=== PATIENT | male | born 1980 | race Caucasian/White ===

== ENCOUNTER 2024-10-24 02:50 | Emergency (ER) | payer MEDICAID, SELFPAY ==
[2024-10-24 02:51] VITALS: BP 128/80; PULSE 71; RESP 16; TEMP 36.7; O2SAT 100; BMI 24.6
--- NOTE | 2024-10-24 02:55 | EX.ED.DYSGE1 ---
HPI History of Present Illness Chief Complaint: Chest Pain Informant: patient and EMS Narrative Narrative: Patient is a 44-year-old male with past medical history of hidradenitis suppurativa and smoking. He states that over the past 2 to 3 days he has been having increasing pain from his hidradenitis. He states he has not had a fever or chills. He denies any history of immunosuppression. He states he was walking to another hospital that he has been seen before for his hidradenitis when he began to experience some chest discomfort. He states that he had a pain/pressure in the middle of his chest without radiation or nausea vomiting diaphoresis or shortness of breath. He states he struggles with anxiety and believes he was having a panic attack. He states that he called EMS when the symptoms occurred. However after they were able to pick him up and bring him to the ER he states he has had spontaneous resolution of the chest discomfort. [facility] Medical History Anxiety Home Medications ?Medication ?Instructions ?Recorded ?Last Taken ?Type amoxicillin 875 mg-potassium 1 tab PO BID 10 days #20 tabs 10/24/24 Unknown Rx clavulanate 125 mg tablet doxycycline hyclate 100 mg capsule 100 mg PO BID 10 days #20 caps 10/24/24 Unknown Rx oxycodone-acetaminophen 5 mg-325 1 tab PO Q6H PRN pain 3 days #12 10/24/24 Unknown Rx mg tablet (Percocet) tabs prednisone 20 mg tablet 40 mg (2 x 20 mg) PO DAILY 7 days 10/24/24 Unknown Rx #14 tabs Allergy/AdvReac Type Severity Reaction Status Date / Time sulfamethoxazole (From AdvReac Unknown PT UNABLE Verified 10/24/24 02:55 Bactrim) TO RESPOND-NEEDS F/U trimethoprim (From Bactrim) AdvReac Unknown PT UNABLE Verified 10/24/24 02:55 TO RESPOND-NEEDS F/U Social History Smoking Status: Current every day smoker tobacco type: cigarettes ROS ROS ED Constitutional Constitutional ED: Denies chills or fever(s) ENT ENT ED: Denies sore throat Cardiovascular Cardiovascular: Reports chest pain; Denies palpitations or racing heartbeat Respiratory/Chest Respiratory/Chest: Denies cough or dyspnea Gastrointestinal Gastrointestinal: Denies abdominal pain, diarrhea, nausea or vomiting Musculoskeletal Musculoskeletal: Denies myalgias Integumentary Reports other Details: Positive chronic skin changes secondary to hidradenitis suppurativa Neurologic Neurologic: Denies headache(s) Psychiatric Psychiatric: Reports anxiety; Denies suicidal ideation or suicidal thoughts Hematologic/Lymphatic Hematologic/Lymphatic: Denies easy bleeding or easy bruising EXAM Physical Exam Const Vital Signs: 10/24/24 02:51 10/24/24 02:53 10/24/24 03:50 Temperature 98.1 F Temperature Source Oral Pulse Rate 71 56 L Respiratory Rate 16 18 Respiratory Effort Non-Labored Short of Breath Blood Pressure 128/80 H 123/77 H Blood Pressure Mean 96 92 Pulse Ox 100 100 Oxygen Delivery Method Room Air Room Air Positive well nourished and well developed General Appearance ED: well developed HEENT HEENT Narrative: Normocephalic atraumatic Eyes PERRL and EOMs intact bilaterally General Eye ED: Negative for scleral icterus Neck supple and no JVD Chest Wall palpation of chest normal Chest Narrative: No bony deformity or subcutaneous emphysema noted Resp normal respiratory effort Resp Narrative: Breath sounds are slight diminished throughout with faint expiratory wheeze and rhonchi in the bilateral bases; however no signs of respiratory distress Cardio regular rate and regular rhythm Rate: other Other Details: Heart is regular rate and rhythm without murmurs rubs or gallops GI normal to inspection, nondistended, normoactive bowel sounds, non-tender, non-distended and no masses Auscultation: normoactive bowel sounds Palpation: soft Extremity Extremity Narrative: No asymmetric edema no pitting edema negative Homans' sign bilaterally Neuro oriented x3, CN's II-XII intact bilaterally and no sensory deficits noted Sensorium / Orientation: alert Motor Exam: strength 5/5 throughout Psych Mood & Affect: anxious Skin Skin Narrative: Patient has chronic/keloid scarring as well as erythema in the bilateral axillas as well as across the low back and buttocks consistent with hidradenitis suppurativa. However there are no obvious signs of abscess formation. No lymphangitic streaking. No crepitance palpated. MDM MDM MDM Narrative Medical decision making narrative: Patient arrived to the ER with stable vitals and reported spontaneous resolution of his chest pain. He has minimal risk factors for cardiovascular disease and I do agree that his discomfort was most likely related to anxiety. However in order to rule out acute coronary syndrome or cardiac dysrhythmia an EKG was obtained as well as troponin and patient was kept on the registered nurse cardiac telemetry. EKG was sinus rhythm without ischemic findings and troponin is normal going against ACS. Patient was kept on the registered nurse cardiac telemetry for his ER visit and there was no cardiac dysrhythmia. With his hidradenitis suppurativa there is concern for systemic infection. However the patient is afebrile and normotensive going against sepsis/SIRS. White count and neutrophil count are also normal going against a stomach infection. By exam he does not have overlying acute cellulitis or abscess formation. The patient's lactic acid is also normal going against a stomach infection. Therefore at this time as vitals are stable there is no signs of acute coronary syndrome or cardiac dysrhythmia and laboratory studies do not suggest systemic infection I do not feel patient warrants admission. He will be placed on Augmentin doxycycline and prednisone. A chart review was performed and he was admitted to [facility] in April of this year. He was admitted for his hidradenitis. He was seen by infectious disease and recommendation was for oral outpatient therapy as he did not have findings for sepsis upon their evaluation either. Therefore he will be prescribed the 3 medications listed above as this was their recommendation roughly 7 months ago. At this time without ACS findings dysrhythmia findings or signs of systemic infection he can be placed on these medications and discharged home History & Record Review Discussion w/independent historian: Patient Lab Data Attestation: I reviewed the patient's lab results. Labs: Laboratory Results - last 24 hr 10/24/24 03:17 WBC 7.7 RBC 4.86 Hgb 10.4 L Hct 34.7 L MCV 71.4 L MCH 21.4 L MCHC 30.0 L RDW Std Deviation 46.5 H RDW Coeff of Farshad 18.2 H Plt Count 180 Immature Gran % (Auto) 0.300 Neut % (Auto) 66.7 Lymph % (Auto) 22.4 [place] % (Auto) 6.2 Eos % (Auto) 3.9 Baso % (Auto) 0.5 Absolute Neuts (auto) 5.2 Absolute Lymphs (auto) 1.73 Nucleated RBC % 0 Sodium 140 Potassium 3.5 Chloride 103 Carbon Dioxide 24.5 Anion Gap 12 BUN 7 Creatinine 0.71 Estim Creat Clear Calc 154.37 Est GFR (MDRD) Non-Af 116 BUN/Creatinine Ratio 10.3 Glucose 89 Lactic Acid 1.3 Calcium 9.1 Troponin T High Sens < 6 C-React Prot Ext Range 31.80 H Radiography Diagnostic Testing: Clinical Impression(s) from Imaging Studies Chest X-Ray 10/24/24 03:25 IMPRESSION: No acute findings Reading Location: [facility] 2 view chest x-ray as interpreted by the emergency medicine physician reveals no acute infiltrate pneumothorax pleural effusion or widening of the mediastinum Discharge Plan Triage Chief Complaint: Chest Pain ED Provider: Silvestre Pond Dx/Rx/DC Orders Clinical Impression: Hidradenitis suppurativa, Nonspecific chest pain, Anxiety, Tobacco use Instructions: ED Hidradenitis Suppurativa, Abx Prescriptions: New amoxicillin-pot clavulanate 875-125 mg tablet 1 tab PO BID 10 Days Qty: 20 0RF doxycycline hyclate 100 mg capsule 100 mg PO BID 10 Days Qty: 20 0RF prednisone 20 mg tablet 40 mg PO DAILY 7 Days Qty: 14 0RF oxycodone-acetaminophen [Percocet] 5-325 mg tablet 1 tab PO Q6H PRN (Reason: pain) 3 Days Qty: 12 0RF Primary Care Provider: Pritesh Duran Referrals: [facility] Doctor,Out of [Non-Staff] - Activity Restrictions/Additional Instructions: Your workup today did not show any sign of active heart damage or systemic infection. Therefore please take the prescribed medications as directed to help control symptoms and return to the ER should you have any further concerns Print Language: Swedish Disposition Disposition: Home, Self Care
--- NOTE | 2024-10-24 03:04 | EKG12_ITS ---
Test Reason : CP Blood Pressure : */* mmHG Vent. Rate : 65 BPM Atrial Rate : 65 BPM P-R Int : 144 ms QRS Dur : 96 ms QT Int : 452 ms P-R-T Axes : 19 32 38 degrees QTcB Int : 470 ms Normal sinus rhythm Normal ECG Confirmed by GALE MOREIRA, ZEHRA ([id number]), proposal editor KETAN PEÑA ([id number]) on 10/26/2024 9:01:53 AM Referred By: JESSE Confirmed By: ZEHRA BEASLEY MD
--- NOTE | 2024-10-24 03:12 | PCA ---
NO OLD EKG
--- NOTE | 2024-10-24 03:25 | RAD_ITS ---
PROCEDURE: CHEST PA AND LATERAL 10/24/2024 REASON FOR EXAM: CHEST PAIN TECHNIQUE: CHEST PA AND LATERAL COMPARISON: No FINDINGS: Mild scoliosis. Normal heart size. Well inflated lungs. No consolidation, effusion or pneumothorax. RAD/Chest PA and Lateral IMPRESSION: No acute findings Reading Location: [place] [address]
[2024-10-24 03:35] LABS: Hematocrit 34.7 % (40-54); Hemoglobin 10.4 g/dL (13.0-16.5); Immature Granulocytes Count 0.020 X10^3/uL (0.0-0.0); Mean Corp Hgb Conc 30.0 g/dL (32-36); Mean Corpuscular Volume 71.4 fL (80-94); NRBC Flagged by Analyzer 0 % (0-5); Platelet Count 180 K/mm3 (150-450); RBC Distribution Width CV 18.2 % (11.6-14.6); RBC Distribution Width SD 46.5 fl (35.1-43.9); Red Blood Count 4.86 M/mm3 (4.6-6.2); White Blood Count 7.7 K/mm3 (4.4-11.0)
[2024-10-24 03:50] VITALS: BP 123/77; PULSE 56; RESP 18; O2SAT 100
[2024-10-24] MEDS: Vancomycin HCl 1,250 MG in 0.9% Normal Saline (250mL Bag) 250 ML 167 MG IV (04:09)
[2024-10-24 04:19] LABS: Anion Gap 12 (5-15); BUN 7 mg/dL (4-19); BUN/Creat Ratio 10.3 RATIO (10-20); Calcium,Total 9.1 mg/dL (7.6-11.0); Carbon Dioxide 24.5 mmol/L (21.0-32.0); Chloride 103 mmol/L (98-108); Estimated Creatinine Clearance 154.37 ml/min (50-250); Glucose 89 mg/dL (70-99); Potassium 3.5 mmol/L (3.3-5.1); Troponin T High Sensitivity < 6 ng/L (<=22)
[2024-10-24 04:35] LABS: CRP 31.80 mg/L (0.0-3.0)
[2024-10-24 05:00] VITALS: BP 124/81; PULSE 61; RESP 16; O2SAT 97
[2024-10-24 06:00] VITALS: PULSE 61; RESP 15; O2SAT 99
[2024-10-24 06:11] VITALS: BP 118/88; PULSE 61; RESP 15; TEMP 36.3; O2SAT 97
== END 2024-10-24 06:17 | disposition home or self-care (01) ==
PROVIDERS: Emergency Provider Emergency Medicine; Visit Provider Emergency Medicine
DX: L73.2 Hidradenitis suppurativa (principal); R07.89 Other chest pain; F41.9 Anxiety disorder, unspecified; F17.210 Nicotine dependence, cigarettes, uncomplicated
CPT/HCPCS: 71046; 80048; 83605; 84484; 85025; 86140; 93005; 96365; 96366; 96375; 96376; 99285; A4216; J2405